=== PATIENT | female | born 1965 | race African-American/Black ===

== ENCOUNTER 2017-06-21 11:00 | Day surgery (SDC) | payer OTHER ==
[~2017-06-21 11:00] MED LIST: CEFAZOLIN 2 GM/50 ML (PMX) 50 ML IVPB
[2017-06-21] MEDS ORDERED: MIDAZOLAM 1 MG/ML 2 ML INJ (14:17)
[2017-06-21] MEDS ORDERED: FENTAnyl 50 MCG/ML VIAL ×2 (14:17→14:31)
[2017-06-21] MEDS ORDERED: PROPOFOL 20 ML (14:17)
[2017-06-21] MEDS ORDERED: CEFAZOLIN 1 GM INJ (14:17)
[2017-06-21] MEDS: BUPIVACAINE 0.5% (SDV) 30 ML INJ (14:29)
[2017-06-21] MEDS ORDERED: ONDANSETRON (ODT) 4 MG TAB ODT (15:30)
[2017-06-21] MEDS ORDERED: HYDROCODONE/APAP (10/325) TAB PO (15:30)
[2017-06-21] MEDS ORDERED: OXYCODONE/ACETAMINOPHEN (5/325) TAB PO ×2 (16:00)
[2017-06-21] MEDS ORDERED: HYDROmorphONE (0.2 MG/ML) 10ML SYG IV ×3 (16:00)
== END 2017-06-21 17:10 | disposition home or self-care (01) ==
LOC: SDS 11:00
DX: M72.2 Plantar fascial fibromatosis (principal)
CPT/HCPCS: 28060; 84703; 88304